=== PATIENT | male | born 1935 | race Caucasian/White ===

== ENCOUNTER 2018-07-30 10:06 | Inpatient (IN) | payer MEDICARE ==
--- NOTE | 2018-07-30 10:48 | RAD ---
PORTABLE CHEST 1 VIEW: Date: 07/30/18 Time: 1022 hours HISTORY: Sepsis. FINDINGS/IMPRESSION: Comparison made with exam of 05/25/15. The heart size is borderline. There are mild patchy infiltrates in the lower lung tucker bilaterally. No pneumothorax or pleural effusions are seen. The possibility of pneumonia should be considered. POS: [facility]
[2018-07-30 11:07] LABS: #Eosinphils 0.1 thou/uL (0.0-0.7); #Lymphocytes 1.4 thou/uL (1.20-3.40); #Monocytes 1.3 thou/uL (0.11-0.59); #Neutrophils 15.2 thou/uL (1.40-6.50); %Eosinophils 0.3 % (0.0-10.0); %Monocytes 7.4 % (0.0-10.0); %Neutrophils 84.3 % (42.0-75.0); Hemoglobin 12.4 g/dL (14.0-18.0); Mean Corpuscular HGB CONC 31.3 g/dL (32.0-36.0); Mean Corpuscular Volume 95.9 fL (78.0-98.0); Mean Platelet Volume 8.8 fL (7.4-10.4); Platelet Count 258 thou/uL (130-400); RBC Distribution Width 12.2 % (11.5-14.5); Red Blood Cell (RBC) Count 4.14 mill/uL (4.70-6.10)
[2018-07-30 11:13] LABS: Bilirubin Small (Negative); Blood, Urine Negative (Negative); Clarity CLOUDY (Clear); Glucose, Urine (Dipstick) Negative (Negative); Leukocyte Negative (Negative); Nitrite Negative (Negative); Protein, Urine (Dipstick) Negative (Neg-Trace); Specific Gravity, Urine 1.017 (1.002-1.036)
[2018-07-30 11:30] LABS: ALT (SGPT) 36 U/L (8-55); AST (SGOT) 27 U/L (5-34); Albumin 3.5 g/dL (3.4-4.8); Alkaline Phosphatase 88 U/L (40-150); Anion Gap 21 mmol/L (10-20); Bilirubin, Total 1.7 mg/dL (0.2-1.2); Calc. Creatinine Clearance 0 mL/min (70-130); Calcium 8.5 mg/dL (7.8-10.44); Carbon Dioxide 14 mmol/L (23-31); Chloride 102 mmol/L (98-107); Estimated GFR-MDRD 25; Globulin 2.7 g/dL (2.4-3.5); Glucose 141 mg/dL (83-110); Magnesium 2.8 mg/dL (1.6-2.6); Phosphorus 6.1 mg/dL (2.3-4.7); Potassium 4.1 mmol/L (3.5-5.1); Protein, Total 6.2 g/dL (5.8-8.1); Sodium 133 mmol/L (136-145)
[2018-07-30 11:41] LABS: CKMB 11.3 ng/mL (0-6.6); Troponin I 19.632 ng/mL (< 0.028)
[2018-07-30 11:43] LABS: BUN (Urea Nitrogen) 115 mg/dL (8.4-25.7)
[2018-07-30] MEDS ORDERED: Cefepime 2 GM VIAL ONE (11:58)
[2018-07-30] MEDS ORDERED: Heparin 25,000 units/D5W 500 ML IV SCH ×2 (12:30→16:00)
[2018-07-30] MEDS ORDERED: Heparin 10,000 UNITS/ 10 ML VIAL SLOW IVP SCH ×3 (12:30→16:00)
[2018-07-30] MEDS ORDERED: Heparin 25,000 units/D5W 500 ML ONE (12:42)
[2018-07-30 14:08] LABS: Critical Call Chem Troponin I RESULT DECREASING; Troponin I 16.286 ng/mL (< 0.028)
[2018-07-30] MEDS ORDERED: Ondansetron ODT 4 MG TAB SL PRN (14:18)
[2018-07-30] MEDS ORDERED: Ondansetron HCl/PF 4 MG/2 ML Vial IVP PRN ×2 (14:18→14:39)
[2018-07-30 14:19] LABS: INR-International Normal Ratio 1.3; PTT 21.2 SEC (22.9-36.1)
--- NOTE | 2018-07-30 14:33 | HP ---
PRIMARY CARE PHYSICIAN: Dr. Nava at [facility]. REASON FOR ADMISSION: Acute kidney failure, non-ST elevation myocardial infarction, bibasilar pneumonia, atrial fibrillation. HISTORY OF PRESENT ILLNESS: An 83-year-old male who has underlying dementia. He lives at home with his . Currently, the patient is completely altered and he is not able to provide any history. The patient's , son and daughter -in-law present at bedside in the emergency room who provided some history. Last night, the patient was confused. He was weak. The patient was walking and was assisting him to go to chair and subsequently he fell down and he remained on the floor. Per patient's , he did not have any head injury, but the patient was not able to get up from the floor. The patient's did not bother to call her family up until this morning. When the patient's son went to see him, at that time he noticed that he was very weak. He was having shortness of breath. He was incoherent and that is why star route mail driver was called and patient was brought to emergency room for evaluation. Patient denies any pain. He is only alert, oriented x1. The patient gets around at home with a walker. does not have any detailed medical history of this patient. REVIEW OF SYSTEMS: All review of systems tried to review with the patient, but unable to review because of encephalopathy and underlying dementia. ADDITIONAL INFORMATION: Family member reports that since history of stroke, patient has difficulty finding words. He is keep repeating. He is gradually declining in his overall health and he was getting out of breath with exertion. They do not say any previous history of atrial fibrillation or they do not know the previous history of CHF. The patient was previously followed by Dr. Du and Dr. 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 PAST MEDICAL HISTORY: Hypertension, dyslipidemia, osteoarthritis, glaucoma, history of CVA, history of IA, Alzheimer's dementia, coronary artery disease. PAST SURGICAL HISTORY: Cardiac catheterization with 2 stent placement, bilateral cataract surgery. PAST PSYCHIATRIC HISTORY: Unable to review at this point. denies any previous psychiatric history. SOCIAL HISTORY: Patient lives with his . No history of tobacco, alcohol or illicit drug abuse. He ambulates with a walker. FAMILY HISTORY: No family history of coronary artery disease, no colon cancer or stroke. ALLERGIES: PENICILLIN. CURRENT HOME MEDICATIONS: Amlodipine 5 mg p.o. daily, Lipitor 10 mg p.o. at bedtime, lisinopril 10 mg p.o. daily, metoprolol 25 mg p.o. b.i.d., timolol ophthalmic drops twice daily, dorzolamide 1 drop twice daily, Xalatan eyedrops at bedtime. EMERGENCY ROOM COURSE: Patient has received heparin drip, vancomycin 1 gram, cefepime 2 grams, IV fluid, aspirin 324 mg. PHYSICAL EXAMINATION: VITAL SIGNS: On arrival, blood pressure 92/75, pulse 106 and irregular, variable to 120 and irregular, respiratory rate 24, saturation 100% on 2 liter oxygen, temperature 98.5, weight 77.1 kilograms. GENERAL: The patient is currently tachycardic, in atrial fibrillation, relatively hypotensive, alert, oriented x1. Ill-appearing. HEENT: Head: Normocephalic, atraumatic. Eyes: Pupils round, reactive to light. Extraocular muscle intact. ENT: Dry appearing mucous membrane, no oral lesion, no pharyngeal erythema, no exudate. NECK: Supple, no JVD, no thyromegaly, no carotid bruit. LUNGS: Reduced air entry at base. No obvious rhonchi or rales heard. No wheezing, no accessory muscles of respiration in use. CARDIAC: S1, S2 irregularly irregular. No gross murmur elicited, no gallop, no rub. ABDOMEN: Soft, bowel sounds present, nontender, nondistended. No organomegaly , no mass, no suprapubic tenderness, no peritoneal sign. BACK: Unremarkable, no CVA tenderness. EXTREMITIES: Upper extremity, passive movement of all joints are normal. Lower extremity, bilateral lower extremity pitting edema noted +1. Good distal pulsation. SKIN: No skin rash other than mild pressure ulcer present on sacrum. HEMATOLOGICAL: No lymphadenopathy. PSYCHIATRIC: Normal affect. NEUROLOGIC: The patient is moving all 4 limbs. Detailed neurological examination is not possible because of altered mental status. SIGNIFICANT LABORATORY DATA AND IMAIGNG: EKG showing atrial fibrillation with rapid ventricular response, LBBB. Chest x-ray showing bibasilar infiltration noted. CBC: WBC 18.0, hemoglobin 12.4, platelet 258 with a left shift. BMP: Sodium 133, potassium 4.1, chloride 102, carbon dioxide 14, anion gap 21, BUN 115, creatinine 2.49, glucose 141, calcium 8.5. Lactic acid 3.9. Phosphorus 6.1, magnesium 2.8. LFT: AST 27, ALT 36, alkaline phosphatase is 88, albumin 3.5. CK-MB 11.3, troponin I is 19.632. Urinalysis normal. ASSESSMENT AND PLAN: 1. Acute encephalopathy. This patient is already baseline demented and he has more altered than baseline, most likely related with metabolic parameters as well as infectious etiology. He does not have any focal neurological deficit on examination. We will monitor. 2. Sepsis with acute organ dysfunction. This patient has lactic acidosis, leukocytosis, altered mental status, acute kidney failure and non-ST elevation myocardial infarction, most likely source of infection is lung. Patient will be on broad spectrum antibiotic therapy. 3. Acute kidney failure. His previous creatinine was in 2016, which was normal. Currently, 2.49. He may have underlying chronic kidney disease, but unknown. At this point, he has elevated anion gap acidosis associated with kidney failure and that is why we will start dextrose with NS with a sodium bicarbonate drip at 75 mL per hour. We will consult Nephrology. We will obtain renal ultrasound. We will check urine sodium, creatinine, protein and urine electrolytes for further evaluation. We will give all medication as renally adjusted dose. 4. Lactic acidosis with elevated anion gap acidosis. We are starting dextrose , NS with bicarbonate drip and we will monitor renal function tests, most likely related with kidney failure and sepsis. 5. Hyperphosphatemia, may be related with renal failure. We will check a PTH tomorrow to rule out secondary hyperparathyroidism of renal origin. 6. Non-ST elevation myocardial infarction. Suspecting demand ischemia. Patient is not able to provide any history of angina. He does have left bundle branch block and he does have atrial fibrillation with rapid ventricular response. We will check total CK to rule out rhabdomyolysis. We will do serial cardiac enzymes x3. Cardiology notified from the ER and patient is started on heparin drip, which will continue as per cardiology recommendation. We will obtain echocardiography to assess ejection fraction and other structural abnormality. We will continue with aspirin 325 mg p.o. daily. Currently, the patient has low blood pressure and that is why he may not able to get beta ayan therapy and renal failure prevents giving him an FLORIAN inhibitor. We will defer further plan to Cardiology. 7. Glaucoma. We will continue patient's ophthalmic drops, Timolol maleate ophthalmic drops and dorzolamide ophthalmic drops and Xalatan eyedrops as per home dosage. 8. Dyslipidemia. We will check total CK, lipid profile tomorrow and continue Lipitor 10 mg p.o. at bedtime. 9. Deep venous thrombosis prophylaxis. The patient is already on heparin drip. 10. Gastrointestinal prophylaxis, Protonix 40 mg IV daily. 11. Code status spoke with the patient's family member, including and son and patient is DNR based on their description. 12. Atrial fibrillation, monitor, will give digoxin if needed, echo, on heparin drip for now Disposition plan based on clinical course. We are expecting patient's stay in hospital more than 2 midnights. This patient will need placement to swing bed or fdc home upon discharge as well. ASHLEY
[2018-07-30] MEDS ORDERED: Senokot 8.6 MG TAB PO PRN (14:39)
[2018-07-30] MEDS ORDERED: Loperamide HCl 2 MG CAP PO PRN (14:39)
[2018-07-30] MEDS ORDERED: Nitroglycerin 0.4 MG TAB (25 Tab Bottle) SL PRN (14:39)
[2018-07-30] MEDS ORDERED: Ondansetron ODT 4 MG TAB PO PRN (14:39)
[2018-07-30] MEDS ORDERED: Sodium Chloride 0.65% Nasal 44 ML BOT EA NARE PRN (14:39)
[2018-07-30] MEDS ORDERED: Artificial Tear Sol 15 ML BOT EA EYE PRN (14:39)
[2018-07-30] MEDS ORDERED: Diabetic Tussin 200 MG/10 ML UDCUP PO PRN (14:39)
[2018-07-30] MEDS ORDERED: Chloraseptic Spray 180 ml Bottle PO PRN (14:39)
[2018-07-30] MEDS ORDERED: Loratadine 10 MG TAB PO PRN (14:39)
[2018-07-30] MEDS ORDERED: Milk Of Magnesia 30 ML UDCUP PO PRN (14:39)
[2018-07-30] MEDS ORDERED: Heparin 25,000 units/D5W 500 ML IVPB SCH (14:39)
[2018-07-30] MEDS ORDERED: Mag-Al 1200 mg/1200 mg/30 ML UDCUP PO PRN (14:39)
[2018-07-30] MEDS ORDERED: Eucerin (Mineral Oil/Petrolatum,White) 30 gm Jar TOP PRN (14:39)
[2018-07-30] MEDS ORDERED: Acetaminophen 325 MG TAB PO PRN (14:39)
[2018-07-30 15:02] VITALS: BMI 22.4
[2018-07-30 15:05] LABS: Hemoglobin 12.2 g/dL (14.0-18.0); Platelet Count 247 thou/uL (130-400)
[2018-07-30 15:20] LABS: Lactic Acid 2.8 mmol/L (0.5-2.2)
[2018-07-30 15:20] LABS: Protein, Urine Random Quant 17 mg/dL (1-14); Sodium, Urine Less than 20 mmol/L (Not Available)
[2018-07-30] MEDS ORDERED: Vancomycin HCl 1 GM in Premix Bag 1 BAG IVPB SCH (15:45)
--- NOTE | 2018-07-30 16:10 | CON ---
DATE OF CONSULTATION: 07/30/2018 CARDIOLOGY CONSULTATION REASON FOR CONSULTATION: Elevated troponins. HISTORY OF PRESENT ILLNESS: Mr. Narayanan is an 83-year-old white gentleman who comes to the hospital fo r altered mental status. He has underlying dementia. Lives at home with his . According to the family, he is actually able to just be pleasant and is able to converse adequately. Apparently, he had a fall as he was weak. assisted him to the chair. He eventually fell down and was on the f maxime for a long time. In the morning, family was called in to help him up and he was very weak and s hort of breath and he was not making much sense, so he was brought in for evaluation. In the ER, he denied any chest pain, tightness or pressure. Currently, he continues to deny any chest pain, tightn ess or pressure. His only issue is wanting to drink water. He usually walks with a walker and under evaluation, he was found to have elevated troponin, so Cardiology was consulted for this. PAST MEDICAL HISTORY: 1. Hypertension. 2. Hyperlipidemia. 3. Osteoarthritis. 4. Glaucoma. 5. Cerebrovascular accidents in the past. 6. History of myocardial infarction in the . 7. Alzheimer's dementia. PAST SURGICAL HISTORY: 1. Cardiac catheterization with 2 stents placed in the by Dr. Suárez and Dr. Du. He has been following more recently with a director apparel in [facility]. 2. Bilateral cataract surgery. SOCIAL HISTORY: No alcohol, tobacco or drugs. OUTPATIENT MEDICATIONS: 1. Metoprolol tartrate 25 mg b.i.d. 2. Lisinopril 10 mg a day. 3. Xalatan ophthalmic solution. 4. Dorzolamide ophthalmic solution. 5. Lipitor 10 mg at bedtime. 6. Amlodipine 5 mg at bedtime. ALLERGIES: PENICILLIN. FAMILY HISTORY: Noncontributory. REVIEW OF SYSTEMS: Unobtainable as the patient is really not conversing and confused. PHYSICAL EXAMINATION: VITAL SIGNS: Temperature 97.0, pulse 100, respiratory rate 16, satting 100% on 2 liters nasal cannul a, blood pressure 107/38. GENERAL: Awake, alert. He is oriented to person only, in no distress. HEENT: Normocephalic, atraumatic. NECK: Supple. LUNGS: Clear. CARDIOVASCULAR: S1, S2. No S3, S4. There is a grade 2/6 systolic murmur in the right upper sternal border. ABDOMEN: Soft. Positive bowel sounds. EXTREMITIES: 2+ edema. SKIN: Warm and dry. LABORATORY DATA: Reviewed. CBC with a white count of 18, hemoglobin of 12, hematocrit of 39, platel et count of 258,000. Coags with an INR of 1.3. Chemistries with sodium of 133, anion gap was 21, BU N of 115, creatinine 2.49, GFR of 25. Lactic acid was 3.9. His baseline creatinine is actually at 0 .9. The last time it was checked here in the hospital was back in 12/2015. His CK was 421. His CK- MB was 11 and troponin was 19 initially, down to 16.2, magnesium was 2.8, total bilirubin was 1.7 wit h normal AST, ALT and alkaline phosphatase. UA was karen, cloudy, but negative for UTI. Chest x-ray showed mild patchy infiltrates in the lower lung tucker bilaterally, possible pneumonia. ASSESSMENT AND PLAN: 1. Non-ST elevation myocardial infarction: Certainly, his troponin elevations are significant and w ould indicate likely an acute coronary syndrome. I will recommend that he be started on full anticoa gulation with heparin given his renal dysfunction. Family has decided to make him DNR/DNI, which I t hink is appropriate. He would currently not be a candidate for heart catheterization given his eleva sarah creatinine and DNR status as well as altered mentation and dementia. We will treat him medically for now. 2. Possible sepsis per primary team. 3. We will get an echocardiogram to evaluate LV function and valvular structures. Thank you for letting us participate in the care of your patient. We will follow.
--- NOTE | 2018-07-30 16:13 | ULT ---
BILATERAL RENAL ULTRASOUND: Date: 07/30/18 HISTORY: Acute renal insufficiency. FINDINGS: The right kidney measures 10.7 cm in length and the left kidney measures 11.2 cm in length. The urina ry bladder is grossly unremarkable with a pre-void volume of 93 mL. IMPRESSION: No evidence of high grade obstruction. POS: [facility]
[2018-07-30] MEDS: Sodium Bicarbonate 150 MEQ in Dextrose 5 %-0.45 % NaCl 1,000 ML IV SCH (17:28)
[2018-07-30 18:05] LABS: Troponin I 16.824 ng/mL (< 0.028)
[2018-07-30] MEDS ORDERED: Dorzolamide HCl 2% Ophth Soln 10 ml Bottle R EYE SCH (21:00)
[2018-07-30] MEDS: Timolol 0.5% Ophth Soln 5 ml Bottle EA EYE SCH (21:02)
[2018-07-30] MEDS: Dorzolamide HCl 2% Ophth Soln 10 ml Bottle EA EYE SCH (21:04)
[2018-07-30] MEDS: Latanoprost 0.005% Ophth Soln 2.5 ml Bottle EA EYE SCH (21:05)
[2018-07-30] MEDS: Atorvastatin Calcium 10 MG TAB PO SCH (21:05)
[2018-07-30 23:41] LABS: Anion Gap 21 mmol/L (10-20); Calc. Creatinine Clearance 28 mL/min (70-130); Calcium 8.2 mg/dL (7.8-10.44); Carbon Dioxide 15 mmol/L (23-31); Chloride 102 mmol/L (98-107); Estimated GFR-MDRD 29; Glucose 208 mg/dL (83-110); Potassium 4.6 mmol/L (3.5-5.1); Sodium 133 mmol/L (136-145)
[2018-07-30 23:52] LABS: BUN (Urea Nitrogen) 119 mg/dL (8.4-25.7)
[2018-07-31] MEDS ORDERED: Cefepime 1 GM in Sodium Chloride 0.9% 100 ML IVPB SCH (01:00)
[2018-07-31 04:35] LABS: ALT (SGPT) 629 U/L (8-55); AST (SGOT) 708 U/L (5-34); Albumin 3.3 g/dL (3.4-4.8); Alkaline Phosphatase 90 U/L (40-150); Anion Gap 23 mmol/L (10-20); Calc. Creatinine Clearance 25 mL/min (70-130); Calcium 8.4 mg/dL (7.8-10.44); Carbon Dioxide 16 mmol/L (23-31); Cardiac Risk 5.7 (Less than 4.5); Chloride 101 mmol/L (98-107); Cholesterol 119 mg/dl (< 200 Desired); Estimated GFR-MDRD 25; Globulin 2.3 g/dL (2.4-3.5); Glucose 151 mg/dL (83-110); HDL Cholesterol 21 mg/dL (>60 Neg Risk); LDL Cholesterol, Calculated 82 mg/dL; Protein, Total 5.6 g/dL (5.8-8.1); Sodium 135 mmol/L (136-145); Triglycerides 78 mg/dL (Less than 150)
[2018-07-31 04:38] LABS: BUN (Urea Nitrogen) 122 mg/dL (8.4-25.7)
[2018-07-31 04:57] LABS: Band 16 % (5-11); Hemoglobin 12.9 g/dL (14.0-18.0); Lymphocytes 7 % (21-51); MDiff Complete? YES; Mean Corpuscular HGB CONC 32.5 g/dL (32.0-36.0); Mean Corpuscular Hemoglobin 30.3 pg (27.0-31.0); Mean Corpuscular Volume 93.3 fL (78.0-98.0); Mean Platelet Volume 9.1 fL (7.4-10.4); Monocytes 5 % (0-10); Neutrophil 72 % (42-75); Platelet Count 230 thou/uL (130-400); RBC Distribution Width 12.2 % (11.5-14.5); Red Blood Cell (RBC) Count 4.27 mill/uL (4.70-6.10); White Blood Cell (WBC) Count 17.7 thou/uL (4.8-10.8)
--- NOTE | 2018-07-31 07:47 | ADD-HP ---
ADDENDUM 1. Bibasilar community-acquired pneumonia. This patient does not have any classic history of respir atory symptoms, but he has elevated leukocytosis. He has a radiological finding of basilar infiltrat ion. We will suspect as if community-acquired pneumonia. Pulmonary already on the case because adriana ent is going to be admitted in [facility]. We will continue with broad spectrum antibiotic therapy with ce fepime, Levaquin. At this point, we will also provide probiotics. 2. Atrial fibrillation with rapid ventricular response. Currently, patient's rate is variable, most likely related with the stress. Patient's blood pressure is low at this point, so Cardizem drip is not possible, but if his heart rate remain persistent, then we will try to load him with digoxin. Ca rdiology already consulted. We are going to obtain echocardiography and BNP as well. We will do ser ial cardiac enzymes. We will check TSH and lipid profile tomorrow morning.
--- NOTE | 2018-07-31 08:34 | CON ---
DATE OF CONSULTATION: 07/30/2018 CONSULTING PHYSICIAN: Jose Dallas M.D. REASON FOR CONSULTATION: Acute kidney injury. REASON FOR ADMISSION: Altered mentation and not feeling well. HISTORY OF PRESENT ILLNESS: This is an 83-year-old male with history of hypertension, hyperlipidemia, osteoarthritis, dementia, coronary artery disease , who came to the hospital with altered mentation and patient does have baseline dementia. No fever or chills. Slightly confused, not able to give a good history. The patient was found down on the floor and was very weak. No chest pain, palpitation. The patient has some speech difficulty. PAST MEDICAL HISTORY: Positive for hypertension, hyperlipidemia, , glaucoma, CVA, coronary artery disease, dementia. PAST SURGICAL HISTORY: Cardiac catheterization with stent placement, bilateral cataract surgery. HOME MEDICATIONS: Include Lipitor, amlodipine, metoprolol, lisinopril, timolol , dorzolamide. ALLERGIES: PENICILLIN. SOCIAL HISTORY: No smoking, alcohol or illicit drug abuse. FAMILY HISTORY: No history of kidney disease. REVIEW OF SYSTEMS: Could not be obtained due to dementia and confusion. PHYSICAL EXAMINATION: GENERAL: This is a well-built white male in no apparent distress, demented, pleasantly confused. VITAL SIGNS: Temperature 95, pulse 88, blood pressure 91/61. HEENT: Atraumatic, normocephalic. Oral mucosa is moist. NECK: Supple, no masses. CARDIOVASCULAR: S1, S2 heard. Rate and rhythm regular. RESPIRATORY: Clear. GASTROINTESTINAL: Abdomen is soft. MUSCULOSKELETAL: 1+ edema. DERMATOLOGIC: No skin rash. NEUROLOGIC: Alert and awake. PSYCHIATRIC: Mood and affect normal. LABORATORY DATA: Hemoglobin is 12.2, potassium is 4.1, BUN is 115, creatinine is 2.4. ASSESSMENT AND PLAN: 1. Acute kidney injury most likely cardiorenal syndrome. Prognosis guarded. No acute indication for dialysis. Follow up with cardiology. 2. Potassium level is stable. 3. Metabolic acidosis. will monitor. 4. Lactic acidosis. 5. Elevated troponin. 6. Edema, controlled. 7. Anemia, mild. 8. H/o Hypertension, stable, currently hypotensive. 9. Mild hypoalbuminemia. 10. Hypophosphatemia. 11. Continue supportive care, avoid nephrotoxins and we will follow. Thank you for the consult. GUTHRI[facility]ORTLAND MEDICAL CENTERIvory
--- NOTE | 2018-07-31 08:56 | CON ---
DATE OF CONSULTATION: 07/31/2018 CONSULTING PHYSICIAN: Jovita vera. REASON FOR CONSULTATION: IMCU placement. HISTORY OF PRESENT ILLNESS: This 83-year-old male with dementia who could not give anything in the way of history. He was brought in by family last night because he was weak. He was found to have elevated troponin. He also has an elevated white blood cell count. I am not sure what his baseline mental status is. PAST MEDICAL HISTORY: 1. Hypertension. 2. Dementia of Alzheimer's type. 3. Hyperlipidemia. 4. Osteoarthritis. 5. Glaucoma. 6. Stroke. 7. Coronary artery disease with MIs in the past. PAST SURGICAL HISTORY: 1. Cardiac catheterization with 2 stent placements in the . 2. Bilateral cataract surgery. SOCIAL HISTORY: Nonsmoker, does not consume alcohol. MEDICATIONS PRIOR TO ADMISSION: Metoprolol 25 mg b.i.d., lisinopril 10 mg daily , Xalatan eye drops, dorzolamide, Lipitor 10 mg at bedtime, amlodipine 5 mg nightly. ALLERGIES: PENICILLIN. FAMILY MEDICAL HISTORY: Unremarkable. REVIEW OF SYSTEMS: Unobtainable due to the patient's altered mental status. PHYSICAL EXAMINATION: VITAL SIGNS: Temperature 96.4, pulse 82, respirations 20, O2 sat 98% on 2 liters, blood pressure 70/36. GENERAL: The patient is chronically ill appearing. He will wake up. He does not appear to be in any distress. HEENT: Bitemporal wasting present. Pupils reactive. Oropharynx clear. NECK: No JVD or bruits. LUNGS: Coarse rhonchi bilaterally. CARDIOVASCULAR: S1, S2 regular. ABDOMEN: Soft, nontender, nondistended. EXTREMITIES: He has extremely cool extremities from the knees downward bilaterally. He has some edema in his right ankle area. LABORATORY DATA: White blood cell count 17.7. Hematocrit 39.9, platelet count 230. Sodium 135, potassium 5, chloride 101, CO2 16, BUN 122, creatinine 2.4, glucose 151, PTT 77.8. Chest x-ray; no patchy infiltrative changes right base. ASSESSMENT: 1. Altered mental status - likely multifactorial. It appears the patient has had a myocardial infarction. I also would agree that he is probably septic and right lower lobe pneumonia is a possibility. 2. Advance Alzheimer's disease. 3. Multiple medical problems. RECOMMENDATIONS: 1. Continue antibiotics. 2. Would recommend transferring out to the floor. He is DNR. We need to focus mainly on comfort. No acute interventions are planned by Cardiology. 70 minutes time, of that >50% spent with patient, or on patient's unit in the hospital MTDD
[2018-07-31] MEDS: Saccharomyces boulardii 250 MG CAP PO SCH (09:24)
[2018-07-31] MEDS: Pantoprazole 40 MG VIAL IVP SCH (09:24)
[2018-07-31] MEDS: Aspirin 325 MG TAB PO SCH (09:24)
--- NOTE | 2018-07-31 10:41 | PDOC.PN ---
- Subjective Encounter Start Date: 07/31/18 Encounter Start Time: 09:50 -: old records requested/rev Patient seen and examined. No new complaints. No overnight events pt is hypotensive, he is afebrile, he is comfortable in his room - Objective Resuscitation Status: Resuscitation Status DNR:Do Not Resuscitate MAR Reviewed: Yes Vital Signs & Weight: Vital Signs (12 hours) Temp Pulse Resp BP Pulse Ox 07/31/18 07:59 98 07/31/18 07:55 96.4 F L 82 20 70/36 L 07/31/18 03:55 95.2 F L 62 22 H 89/59 L 98 07/30/18 23:49 95 07/30/18 23:30 96.3 F L 65 28 H 96/59 L 88 L 07/30/18 22:53 92 L Weight Weight 169 lb 15.6 oz I&O: 07/30/18 07/31/18 08/01/18 06:59 06:59 06:59 Intake Total 940 Output Total 190 Balance 750 Result Diagrams: 07/31/18 03:45 07/31/18 03:45 Radiology Reviewed by me: Yes (echo reviewed) EKG Reviewed by me: Yes (afib) Phys Exam - Physical Examination Constitutional: NAD HEENT: PERRLA, moist MMs, sclera anicteric Neck: no JVD, supple Respiratory: no wheezing, no rhonchi basilar rales+ Cardiovascular: irregular SM+ Gastrointestinal: soft, non-tender, no distention, positive bowel sounds Musculoskeletal: pulses present, edema present Neurological: non-focal, normal sensation Lymphatic: no nodes Psychiatric: normal affect Skin: no rash, normal turgor Dx/Plan (1) Acute kidney failure Status: Acute (2) Acute systolic ACC/AHA stage C congestive heart failure Code(s): I50.21 - ACUTE SYSTOLIC (CONGESTIVE) HEART FAILURE Status: Acute (3) Atrial fibrillation Code(s): I48.91 - UNSPECIFIED ATRIAL FIBRILLATION Status: Acute (4) Cardiomyopathy Code(s): I42.9 - CARDIOMYOPATHY, UNSPECIFIED Status: Acute (5) Community acquired bacterial pneumonia Code(s): J15.9 - UNSPECIFIED BACTERIAL PNEUMONIA Status: Acute (6) Hypotension Status: Acute (7) Metabolic acidosis Code(s): E87.2 - ACIDOSIS Status: Acute (8) NSTEMI (non-ST elevated myocardial infarction) Code(s): I21.4 - NON-ST ELEVATION (NSTEMI) MYOCARDIAL INFARCTION Status: Acute (9) Physical deconditioning Code(s): R53.81 - OTHER MALAISE Status: Acute (10) Sepsis with acute organ dysfunction Code(s): A41.9 - SEPSIS, UNSPECIFIED ORGANISM; R65.20 - SEVERE SEPSIS WITHOUT SEPTIC SHOCK Status: Acute (11) Shock liver Code(s): K72.00 - ACUTE AND SUBACUTE HEPATIC FAILURE WITHOUT COMA Status: Acute (12) Dyslipidemia Code(s): E78.5 - HYPERLIPIDEMIA, UNSPECIFIED Status: Chronic (13) Glaucoma Code(s): H40.9 - UNSPECIFIED GLAUCOMA Status: Chronic (14) Hypertension Code(s): I10 - ESSENTIAL (PRIMARY) HYPERTENSION Status: Chronic - Plan cont current plan of care, continue antibiotics * medication reviewed as below * symptomatic treatment * palliative care consulted * will ask cardiology to consider dobutamin drip * continue heparin drip as per cardiolgy * continue empiric antibiotics for now * prognosis is very poor * renal function and LFT worse due to poor perfusion due to hypotension * pt is not on BB, ACEI, or ARB due to renal failure, hypotension. Review of Systems - Review of Systems Other: not reliable due to underlying dementia - Medications/Allergies Allergies/Adverse Reactions: Allergies Allergy/AdvReac Type Severity Reaction Status Date / Time Penicillins Allergy Verified 07/30/18 14:49 Medications: Current Medications Acetaminophen (Tylenol) 650 mg PO Q4H PRN PRN Reason: Headache/Fever or Pain Al Hydroxide/Mg Hydroxide (Maalox) 30 ml PO Q6H PRN PRN Reason: Heartburn or Indigestion Albuterol/Ipratropium (Duoneb) 3 ml NEB [id number] PRN PRN Reason: SOB &/or Wheezing Artificial Tears (Tears Renewed 15ml Bottle) 0 drop EA EYE PRN PRN PRN Reason: Dry Eyes Aspirin (Aspirin) 325 mg PO DAILY [facility] Last Admin: 07/31/18 09:24 Dose: 325 mg Atorvastatin Calcium (Lipitor) 10 mg PO HS [facility] Last Admin: 07/30/18 21:05 Dose: Not Given Dor[facility]amide [facility] 1 drop EA EYE BID [facility] Last Admin: 07/30/18 21:04 Dose: 1 drop Guaifenesin (Robitussin Sf) 200 mg PO Q4H PRN PRN Reason: Cough Heparin Sodium (Porcine) (Heparin 1,000 Units/Ml (10 Ml)) 0 units SLOW IVP WILLCALL [facility] Sodium Bicarbonate 150 meq/ (Dextrose/Sodium Chloride) 1,150 mls @ 75 mls/hr IV .[id number] [facility] Last Admin: 07/30/18 17:28 Dose: 1,150 mls Levofloxacin 250 mg/ Device 50 mls @ 100 mls/hr IVPB Q24HR [facility] Last Admin: 07/30/18 17:27 Dose: 50 mls Cefepime HCl 1 gm/ Sodium (Chloride) 100 mls @ 200 mls/hr IVPB 1300 [facility]AN Vancomycin HCl 1 gm/ Device 200 mls @ 200 mls/hr IVPB .PENDING LEVEL [facility] Heparin Sodium/Dextrose (Heparin 25,000 Units/D5w 500 Ml) 500 mls @ 0 mls/hr IV INF [facility]; Protocol Latanoprost (Xalatan 0.005% Ophth Soln) 1 drop EA EYE HS [facility] Last Admin: 07/30/18 21:05 Dose: 1 drop Loperamide HCl (Imodium) 2 mg PO PRN PRN PRN Reason: Diarrhea/Loose Stools Loratadine (Claritin) 10 mg PO DAILYPRN PRN PRN Reason: Sinus Symptoms Magnesium Hydroxide (Milk Of Magnesium) 30 ml PO DAILYPRN PRN PRN Reason: Constipation Mineral Oil/White Petrolatum (Eucerin Cream) 0 gm TOP BIDPRN PRN PRN Reason: Dry Skin Miscellaneous Medication (Pharmacy To Dose) 1 each IVPB PRN PRN PRN Reason: Pharmacy to dose Nitroglycerin (Nitrostat) 0.4 mg SL Q5MIN PRN PRN Reason: Chest Pain Ondansetron HCl (Zofran Odt) 4 mg PO Q6H PRN PRN Reason: Nausea/Vomiting Ondansetron HCl (Zofran) 4 mg IVP Q6H PRN PRN Reason: Nausea/Vomiting Pantoprazole Sodium (Protonix) 40 mg IVP DAILY [facility] Last Admin: 07/31/18 09:24 Dose: 40 mg Phenol (Chloraseptic Proctor 180 Ml Bot) 0 ml PO PRN PRN PRN Reason: Sore Throat Saccharomyces Boulardii (Florastor) 250 mg PO DAILY [facility] Last Admin: 07/31/18 09:24 Dose: 250 mg Senna (Senokot) 2 tab PO HSPRN PRN PRN Reason: Constipation Sodium Chloride (Becker Nasal Proctor 0.65%) 0 ml EA NARE QIDPRN PRN PRN Reason: Nasal Congestion Timolol Maleate (Timoptic 0.5% Oph Soln) 1 drop EA EYE BID [facility] Last Admin: 07/30/18 21:02 Dose: 1 drop
[2018-07-31] MEDS: Sodium Bicarbonate 150 MEQ in Dextrose 5 %-0.45 % NaCl 1,000 ML IV SCH (12:13)
[2018-07-31] MEDS: Timolol 0.5% Ophth Soln 5 ml Bottle EA EYE SCH ×2 (12:14→20:26)
[2018-07-31] MEDS: Dorzolamide HCl 2% Ophth Soln 10 ml Bottle EA EYE SCH ×2 (12:14→20:27)
[2018-07-31] MEDS: Cefepime 1 GM in Sodium Chloride 0.9% 100 ML IVPB SCH (12:35)
[2018-07-31] MEDS: DOBUTamine 500 mg/250 ml 500 MG in Premix Bag 1 BAG IVPB SCH (12:36)
[2018-07-31] MEDS: Vancomycin HCl 1 GM in Premix Bag 1 BAG IVPB SCH (14:41)
--- NOTE | 2018-07-31 15:31 | PDOC.CTH ---
Cardiology Progress Note - Subjective He remains mostly confused. Not too verbal. - Objective Vital Signs Temp Pulse Pulse Pulse Resp BP Pulse Ox 07/31/18 12:14 82 07/31/18 12:00 97.0 F L 84 20 88/52 L 100 07/31/18 09:46 84 83 07/31/18 07:59 98 07/31/18 07:55 96.4 F L 82 20 70/36 L 07/31/18 03:55 95.2 F L 62 22 H 89/59 L 98 Pulse Ox Pulse Ox 07/31/18 12:14 07/31/18 12:00 07/31/18 09:46 98 98 07/31/18 07:59 07/31/18 07:55 07/31/18 03:55 Weight 169 lb 15.6 oz 07/30/18 07/31/18 08/01/18 06:59 06:59 06:59 Intake Total 940 550 Output Total 190 Balance 750 550 - Physical Examination General/Neuro: alert & oriented x3, NAD Neck: no JVD present Lungs: CTA, unlabored respirations Heart: RRR Abdomen: NT/ND Extremities: + edema B (1+) - Telemetry Telemetry Rhythm: NSR - Labs Result Diagrams: 07/31/18 03:45 07/31/18 03:45 Troponin/CKMB CK-MB (CK-2) 11.3 ng/mL (0-6.6) H* 07/30/18 10:54 Troponin I 16.824 ng/mL (< 0.028) H* 07/30/18 17:30 - Assessment/Plan 1. NSTEMI 2. Severe LV dysfunction EF at 10-15% 3. Chronci afib 4. Dmenetia 5. Severe deconditioning. 6. ANIYA PLAN: - Conservative therapy. - Not a candidate for any invasive interventions. - DNR/DNI - Hospice would be appropriate at this point. Family considering.
[2018-07-31] MEDS ORDERED: Clopidogrel Bisulfate 75 MG TAB ONE (16:48)
--- NOTE | 2018-07-31 18:10 | PRG ---
DATE OF SERVICE: 07/31/2018 SUBJECTIVE: Patient was seen and examined at bedside and overnight events noted. Patient denies any shortness of breath or chest pain or palpitation. No history of nausea or vomiting or diarrhea or f ever or chills or cramps. OBJECTIVE: GENERAL: This is an elderly male in no apparent distress. VITAL SIGNS: Temperature 97.0, pulse 84, respiratory rate 20, blood pressure 88/52. HEENT: Atraumatic, normocephalic, Oral mucosa is moist NECK: Supple CARDIOVASCULAR: S1, S2 heard. Rate and rhythm regular. RESPIRATORY: Clear to auscultation. GASTROINTESTINAL: Abdomen is soft. MUSCULOSKELETAL: No tenderness, no edema. DERMATOLOGIC: No skin rash. NEUROLOGIC: Alert, awake, and oriented x3. No focal neurologic deficits. Moving all the extremitie s. PSYCHIATRIC: Mood and affect normal. LABORATORY DATA: Potassium is 5, BUN is 122, creatinine is 2.4. ASSESSMENT AND PLAN: 1. Acute kidney injury, on chronic kidney disease, stage 3 with worsening creatinine, most likely fr om Cardiorenal syndrome. Follow up with Cardiology for optimization of cardiac medications. He does have very poor ejection fraction, echo showed 10%-15%. Might need inotropes like dobutamine. Follo w up with Cardiology. Very poor prognosis. Cardiology recommending hospice. 2. Metabolic acidosis, most likely from poor perfusion and poor forward flow. 3. Lactic acidosis. 4. Edema. 5. History of hypertension, currently hypotensive. Overall, prognosis is guarded. No acute indication for dialysis. Follow up with Cardiology for furt her plan. Hospice might be a reasonable choice.
[2018-07-31] MEDS: Atorvastatin Calcium 10 MG TAB PO SCH (20:25)
[2018-07-31] MEDS: Latanoprost 0.005% Ophth Soln 2.5 ml Bottle EA EYE SCH (20:27)
[2018-08-01 04:34] LABS: ALT (SGPT) 1948 U/L (8-55); AST (SGOT) 1998 U/L (5-34); Albumin 2.8 g/dL (3.4-4.8); Alkaline Phosphatase 89 U/L (40-150); Anion Gap 19 mmol/L (10-20); Bilirubin, Total 1.9 mg/dL (0.2-1.2); Calc. Creatinine Clearance 24 mL/min (70-130); Calcium 7.6 mg/dL (7.8-10.44); Carbon Dioxide 19 mmol/L (23-31); Chloride 103 mmol/L (98-107); Estimated GFR-MDRD 24; Glucose 130 mg/dL (83-110); Potassium 3.7 mmol/L (3.5-5.1); Protein, Total 4.8 g/dL (5.8-8.1); Sodium 137 mmol/L (136-145)
[2018-08-01 04:43] LABS: Hemoglobin 11.9 g/dL (14.0-18.0); Mean Corpuscular HGB CONC 33.1 g/dL (32.0-36.0); Mean Corpuscular Hemoglobin 30.5 pg (27.0-31.0); Mean Platelet Volume 9.1 fL (7.4-10.4); Platelet Count 165 thou/uL (130-400); RBC Distribution Width 12.4 % (11.5-14.5); White Blood Cell (WBC) Count 22.1 thou/uL (4.8-10.8)
[2018-08-01 04:44] LABS: Band 13 % (5-11); Lymphocytes 2 % (21-51); MDiff Complete? YES; Monocytes 4 % (0-10); Myelocyte 1 % (0-0); Neutrophil 80 % (42-75); Nucleated RBC 1 % (0)
[2018-08-01 04:55] LABS: BUN (Urea Nitrogen) 126 mg/dL (8.4-25.7)
--- NOTE | 2018-08-01 08:02 | PRG ---
DATE OF SERVICE: 08/01/2018 The patient is doing about the same. He is nonverbal. PHYSICAL EXAMINATION: VITAL SIGNS: Temperature is 96.9, pulse 71, respirations 14, O2 saturation 99% on 3 liters, blood pr essure 85/69. He is currently on dobutamine drip at 5 mcg per minute. HEENT: Unremarkable. NECK: No JVD. CARDIAC: S1, S2, slightly tachycardic. LUNGS: Clear. ABDOMEN: Soft. EXTREMITIES: No edema. LABORATORY DATA: White blood cell count 22.1, hematocrit 35.9, platelet count 165, 80% neutrophils, 13% bands. PTT 55.7. Sodium 137, potassium 3.7, chloride 103, CO2 19, BUN 126, creatinine 2.5, gluc ose 130, AST 1998, ALT 1948. Troponin 16.8. ASSESSMENT: 1. Myocardial infarction. 2. Possible right lower lobe pneumonia - high white blood cell count with bandemia. 3. Advanced Alzheimer's disease. 4. Multiple medical problems. 5. Azotemia. RECOMMENDATIONS: 1. Continue the broad spectrum IV antibiotics and adjust as needed for renal function. 2. Judicious use of dopamine, given the patient's low blood pressure. 3. Continue to monitor labs. 4. The patient is DNR.
[2018-08-01] MEDS: Timolol 0.5% Ophth Soln 5 ml Bottle EA EYE SCH (09:26)
[2018-08-01] MEDS: Pantoprazole 40 MG VIAL IVP SCH (09:26)
[2018-08-01] MEDS: Dorzolamide HCl 2% Ophth Soln 10 ml Bottle EA EYE SCH (09:26)
[2018-08-01] MEDS: Saccharomyces boulardii 250 MG CAP PO SCH (09:26)
[2018-08-01] MEDS: Aspirin 325 MG TAB PO SCH (09:26)
[2018-08-01 11:20] VITALS: BP 87/55; TEMP 96.7
[2018-08-01] MEDS: Cefepime 1 GM in Sodium Chloride 0.9% 100 ML IVPB SCH (11:54)
[2018-08-01] MEDS: DOBUTamine 500 mg/250 ml 500 MG in Premix Bag 1 BAG IVPB SCH (12:08)
--- NOTE | 2018-08-01 13:05 | PDOC.PN ---
- Subjective Encounter Start Date: 08/01/18 Encounter Start Time: 11:45 -: old records requested/rev PT SEEN AND EXAMINED, CHART REVIEWED IN ITS ENTIRETY, THIS IS MY FIRST VISIT WITH THIS PATIENT No F/C, no N/V/D/C, no CP or SOB, no acute overnight events, no new complaints Pt demented, [facility] Discussed current status , family intereste din hospice, unable ot take patient home, GIP likely best option. Pt is DNR/DNI remains on dobutamine wth borderline BP. Cr rising, LFTs rising ROS not obtainable due to advanced alzheimers dementia - Objective Resuscitation Status: Resuscitation Status DNR:Do Not Resuscitate MAR Reviewed: Yes Vital Signs & Weight: Vital Signs (12 hours) Temp Pulse Resp BP Pulse Ox 08/01/18 11:20 96.7 F L 112 H 18 87/55 L 99 08/01/18 09:26 122 H 08/01/18 08:00 99 08/01/18 07:50 97.1 F L 122 H 23 H 86/47 L 99 08/01/18 04:00 96.9 F L 71 14 85/69 L 99 Weight Weight 170 lb I&O: 07/31/18 08/01/18 08/02/18 06:59 06:59 06:59 Intake Total 940 881 Output Total 190 Balance 750 881 Result Diagrams: 08/01/18 04:10 08/01/18 04:10 Radiology Reviewed by me: Yes EKG Reviewed by me: Yes Phys Exam - Physical Examination Constitutional: NAD cachectic HEENT: PERRLA, sclera anicteric mm dry Neck: no JVD, supple Respiratory: no wheezing, no rhonchi right posterior rales, poor effort tachy, regular Gastrointestinal: soft, no distention scaphoid Musculoskeletal: no edema Neurological: non-focal Lymphatic: no nodes Skin: no rash, normal turgor, cap refill <2 seconds Dx/Plan (1) Septic shock Code(s): A41.9 - SEPSIS, UNSPECIFIED ORGANISM; R65.21 - SEVERE SEPSIS WITH SEPTIC SHOCK Status: Acute Comment: ATN/ANIYA, met encephalopathy on dementia , Hypotension requiring pressors (2) Acute kidney failure Status: Acute Comment: ANIYA on CKD - likely ATN in setting of severe sepsis and end-organ dysfunction (3) Atrial fibrillation Code(s): I48.91 - UNSPECIFIED ATRIAL FIBRILLATION Status: Chronic Qualifiers: Atrial fibrillation type: chronic Qualified Code(s): I48.2 - Chronic atrial fibrillation (4) Cardiomyopathy Code(s): I42.9 - CARDIOMYOPATHY, UNSPECIFIED Status: Chronic Qualifiers: Cardiomyopathy type: unspecified Qualified Code(s): I42.9 - Cardiomyopathy , unspecified (5) Community acquired bacterial pneumonia Code(s): J15.9 - UNSPECIFIED BACTERIAL PNEUMONIA Status: Acute Comment: suspected aspiration to RLL. covered (6) Hypotension Status: Acute Qualifiers: Hypotension type: other hypotension type Qualified Code(s): I95.89 - Other hypotension Comment: due to septic shock (7) Metabolic acidosis Code(s): E87.2 - ACIDOSIS Status: Acute (8) NSTEMI (non-ST elevated myocardial infarction) Code(s): I21.4 - NON-ST ELEVATION (NSTEMI) MYOCARDIAL INFARCTION Status: Acute (9) Physical deconditioning Code(s): R53.81 - OTHER MALAISE Status: Acute (10) Shock liver Code(s): K72.00 - ACUTE AND SUBACUTE HEPATIC FAILURE WITHOUT COMA Status: Acute (11) Dyslipidemia Code(s): E78.5 - HYPERLIPIDEMIA, UNSPECIFIED Status: Chronic (12) Glaucoma Code(s): H40.9 - UNSPECIFIED GLAUCOMA Status: Chronic Qualifiers: Glaucoma type: unspecified Laterality: unspecified laterality Qualified Code(s): H40.9 - Unspecified glaucoma (13) Hypertension Code(s): I10 - ESSENTIAL (PRIMARY) HYPERTENSION Status: Chronic Qualifiers: Hypertension type: essential hypertension Qualified Code(s): I10 - Essential (primary) hypertension - Plan cont current plan of care, plan discussed w/ 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 poor prognosis, expect quick demise off of pressors
[2018-08-01] MEDS: Vancomycin HCl 1 GM in Premix Bag 1 BAG IVPB SCH (14:44)
[2018-08-01 14:56] LABS: Vancomycin, Trough 13.2 ug/mL
--- NOTE | 2018-08-01 15:51 | DIS ---
DATE OF ADMISSION: 07/30/2018 DATE OF DISCHARGE: 08/01/2018 DISCHARGE DIAGNOSES: 1. Septic shock. 2. Community-acquired pneumonia, suspected aspiration. 3. Severe/end stage Alzheimer's dementia. 4. Glaucoma. 5. Hyperlipidemia. 6. Nonspecific cardiomyopathy. 7. Acute kidney injury on chronic kidney disease. 8. Severe physical deconditioning. 9. Severe protein calorie malnutrition, present on admission. 10. Shock liver. 11. Acute tubular necrosis. 12. Non-ST elevation myocardial infarction. 13. Acute systolic congestive heart failure, stage C. CONSULTATIONS: 1. Nephrology, Dr. Guerra, 07/30/2018. 2. Pulmonary and Critical Care, Dr. Chadd Curran, 07/31/2018. 3. Cardiology, 07/30/2018, Dr. Severino Rowley. PROCEDURES: Echocardiogram on 07/30/2018 that showed an EF of 10%-15%, dilated left ventricle, mildl y dilated left atrium, mildly enlarged right atrium, mitral annular calcification, mild MR, aortic sc lerosis with reduced cusp opening, mild TR and right ventricular systolic pressure at 25. HISTORY AND PHYSICAL: Mr. Narayanan is an 83-year-old gentleman with severe Alzheimer's dementia, hypert ension who was brought to the emergency department for evaluation on 07/30/2018. There, he was found to be in atrial fibrillation with RVR, met sepsis criteria and had what looked to be a right lower l obe infiltrate. We were subsequently called for admission. HOSPITAL COURSE: The patient was seen and examined by Dr. Dallas. The patient was placed in the IC U. He was started on dobutamine. Cardiology consultation was requested and serial cardiac enzymes w ere ordered. Echo was ordered. The patient was seen by Dr. Rowley and recommended the echo which was done that showed EF of 10%-15%. Patient certainly met severe sepsis criteria and was requiring pressors. The patient was seen by Ivory Guerra for acute kidney injury and felt like the patient needed to be supported with fluids and p ressors and on 07/31/2018, the patient was seen by Pulmonary. From 07/31/2018 to 08/01/2018, the patient remained stable, he had no fevers with stability of his wh ite blood cell count. Today, the patient's family decided on hospice care and the patient was seen and evaluated by [facility] who felt he was appropriate for inpatient hospice care. Arrangements were made. He was discharged to a [facility] unit. PHYSICAL EXAMINATION: The patient was seen and examined on the day of discharge. Discharge plan and disposition was discussed with the patient's family ( and son and family friend) [id number] at the bedside. DISCHARGE MEDICATIONS: None to be determined by Inpatient Hospice. DISCHARGE CONDITION: Poor. DISPOSITION: The patient is being transferred to [facility].
[2018-08-01 15:58] LABS: Hemoglobin 13.4 g/dL (14.0-18.0); Platelet Count 179 thou/uL (130-400)
--- NOTE | 2018-08-01 19:05 | PRG ---
DATE OF SERVICE: 08/01/2018 SUBJECTIVE: Patient was seen and examined at bedside and overnight events noted. Patient denies any shortness of breath or chest pain or palpitation. No history of nausea or vomitin g or diarrhea or fever or chills or cramps. OBJECTIVE: GENERAL: This is an elderly male, in no apparent distress. VITAL SIGNS: Temperature 96.7, pulse 112, respiratory rate 18, blood pressure 87/55. HEENT: Atraumatic, normocephalic. Oral mucosa is moist. NECK: Supple. CARDIOVASCULAR: S1 and S2 heard. Rate and rhythm regular. RESPIRATORY: Clear to auscultation. GASTROINTESTINAL: Abdomen is soft. MUSCULOSKELETAL: No tenderness. No edema. DERMATOLOGIC: No skin rash. NEUROLOGIC: Alert and awake and oriented x3. No focal neurologic deficits. Moving all the extremit ies. PSYCHIATRIC: Mood and affect normal. LABORATORY DATA: Potassium is 3.7, BUN 126, creatinine is 2.5. ASSESSMENT AND PLAN: 1. Acute kidney injury on chronic kidney disease. Renal function worsening. Prognosis guarded. 2. Metabolic acidosis. 3. History of hypertension. 4. Cardiorenal syndrome. 5. Edema. 6. Very poor prognosis hospice evaluation.
== END 2018-08-01 16:59 | disposition hospice, inpatient (51) | DRG 871 ==
LOC: ERS 10:06 → IMCU/EMU 12:43
PROVIDERS: ADMIT Internal Medicine; ATTEND Internal Medicine
DX: A41.9 Sepsis, unspecified organism (principal); I21.4 Non-ST elevation (NSTEMI) myocardial infarction; R65.21 Severe sepsis with septic shock; J69.0 Pneumonitis due to inhalation of food and vomit; E43 Unspecified severe protein-calorie malnutrition; K72.00 Acute and subacute hepatic failure without coma; N17.0 Acute kidney failure with tubular necrosis; I50.21 Acute systolic (congestive) heart failure; J15.9 Unspecified bacterial pneumonia; G93.40 Encephalopathy, unspecified; F05 Delirium due to known physiological condition; E87.4 Mixed disorder of acid-base balance; I42.8 Other cardiomyopathies; I13.0 Hypertensive heart and chronic kidney disease with heart failure and stage 1 through stage 4 chronic kidney disease, or unspecified chronic kidney disease; I25.2 Old myocardial infarction; E78.5 Hyperlipidemia, unspecified; Z86.73 Personal history of transient ischemic attack (TIA), and cerebral infarction without residual deficits; Z95.5 Presence of coronary angioplasty implant and graft; G30.9 Alzheimer's disease, unspecified; F02.80 Dementia in other diseases classified elsewhere, unspecified severity, without behavioral disturbance, psychotic disturbance, mood disturbance, and anxiety; M19.90 Unspecified osteoarthritis, unspecified site; I25.10 Atherosclerotic heart disease of native coronary artery without angina pectoris; E83.39 Other disorders of phosphorus metabolism; I44.7 Left bundle-branch block, unspecified; Z79.82 Long term (current) use of aspirin; H40.9 Unspecified glaucoma; Z66 Do not resuscitate; N18.3 Chronic kidney disease, stage 3 (moderate); Z68.22 Body mass index [BMI] 22.0-22.9, adult; D63.8 Anemia in other chronic diseases classified elsewhere; Z88.0 Allergy status to penicillin; I48.2 Chronic atrial fibrillation
CPT/HCPCS: 36415; 71045; 76770; 80053; 80061; 80202; 81003; 82553; 82570; 83605; 83735; 83880; 84100; 84156; 84300; 84443; 84484; 85025; 85610; 85730; 87040; 93005; 93306; C9113; G8978-GP-CM; G8979-GP-CK; J0692; J1250; J1644; J1956; J3370; J7042; J7050